=== PATIENT | male | born 1935 | race Caucasian/White ===

== ENCOUNTER 2018-03-09 17:10 | Emergency (ER) | payer OTHER ==
[2018-03-09] MEDS ORDERED: NA CHLORIDE 0.9% 500 ML ONE (18:35)
--- NOTE | 2018-03-09 18:35 | RAD REPORT ---
EXAM DESCRIPTION: CT - Head Brain Wo Cont - 03/09/2018 6:21 pm CLINICAL HISTORY: Syncope, fall, head injury COMPARISON: CT head April 2017 TECHNIQUE: Axial 5 mm thick images of the head were obtained without IV contrast. All CT scans are performed using dose optimization technique as appropriate and may include automated exposure control or mA/KV adjustment according to patient size. FINDINGS: A small 9 mm sized acute intraventricular hemorrhages present in the frontal horn left lat eral ventricle. No intraparenchymal hemorrhages present. No AVM or other abnormality as a source for the acute hemorrhage. No epidural or subdural hematoma. No acute cortical based infarction. No edema or midline shift. No cortical edema or sulcal effacement . Patient has prominent underlying atrophy and chronic ischemic change matching the prior study. Vent ricles are in proportion to volume loss. Dense arterial tree calcifications are present. Mastoid air cells and visualized portions of the paranasal sinuses are clear. No acute bony findings. Findings telephoned to the referring physician 6:31 p.m.. IMPRESSION: Small acute intraventricular hemorrhage frontal horn left lateral ventricle. Hemorrhages likely related to fall history. There is no intraparenchymal hemorrhage, AVM or other obinna rce for the intraventricular hemorrhagic event. Prominent atrophy and chronic ischemic change similar to comparison.
--- NOTE | 2018-03-09 18:44 | ER ---
Nurse's Notes [facility] Name: Jose L March Age: 82 yrs Sex: Male : 1935 Arrival Date: 03/09/2018 Time: 17:11 Bed 2 Private MD: Tanner Christopher R Diagnosis: Intraventricular hemorrhage;Weakness Presentation: 03/09 17:43 Presenting complaint: Patient states: Get a weak spell and unable to stay standing up, hb pt reports he falls down but denies LOC. Care prior to arrival: None. Mechanism of Injury: Fall from standing position. 17:43 Acuity: MIGUEL 3 hb 17:43 Method Of Arrival: Wheelchair hb 18:00 Trauma event details: Injury occurred in the [facility], Injury occurred: at home. Injury occurred: March 09, 2018. 19:11 Transition of care: patient was not received from another setting of care. Onset of ph symptoms was March 09, 2018. Risk Assessment: Do you want to hurt yourself or someone else? Patient reports no desire to harm self or others. Initial Sepsis Screen: Does the patient meet any 2 criteria? No. Patient's initial sepsis screen is negative. Does the patient have a suspected source of infection? No. Patient's initial sepsis screen is negative. Trauma Activation: Not Applicable Physician: ED Physician; Name: ; Notified At: ; Arrived At: Physician: General Surgeon; Name: ; Notified At: ; Arrived At: Physician: Radiology; Name: ; Notified At: ; Arrived At: Physician: Respiratory; Name: ; Notified At: ; Arrived At: Physician: Lab; Name: ; Notified At: ; Arrived At: Historical: - Allergies: 17:45 No Known Allergies; hb - PMHx: 18:53 Hypertension; Hyperlipidemia; ph - Immunization history: Last tetanus immunization: unknown. - Family history:: not pertinent. - Social history:: Smoking status: Patient/guardian denies using tobacco. - Ebola Screening: : No symptoms or risks identified at this time. - Hospitalizations: : No recent hospitalization is reported. Screenin:10 Abuse screen: Denies threats or abuse. Denies injuries from another. Nutritional ph screening: No deficits noted. Tuberculosis screening: No symptoms or risk factors identified. Fall Risk Fall in past 12 months (25 points). No secondary diagnosis (0 pts). IV access (20 points). Ambulatory Aid- None/Bed Rest/Nurse Assist (0 pts). Gait- Weak (10 pts.). Mental Status- Oriented to own ability (0 pts). Total Berkowitz Fall Scale indicates High Risk Score (45 or more points). Fall prevention measures have been instituted. Side Rails Up X 2 Placed Close to Nursing Station Frequent Obs/Assessments Occuring Family Present and informed to notify staff if the need to leave the bedside As available patient and family educated on Fall Prevention Program and Strategies. Primary Survey: 18:00 NO uncontrolled hemorrhage observed. A: The patient is alert. No supplemental oxygen in ph use on arrival. Breathing/Chest: Respiratory pattern: regular, Respiratory effort: spontaneous, unlabored, Breath sounds: clear, bilaterally. Circulation: Skin color: pink, Skin temperature: warm, dry. Disability Alert. Exposure/Environment: All clothing and personal items were removed. Forensic evidence collection is not deemed to be indicated at this time. Items placed in patient belonging bag. There is no evidence of uncontrolled external bleeding. Obvious injury(ies) are noted at this time: bruising noted to allie posterior shoulders and L menjivar. 19:09 Reassessment Breathing/Chest Respiratory pattern Regular Respiratory effort Spontaneous ph Unlabored Circulation Color Lyden Temperature Warm Dry Disability Alert. Assessment: 18:00 General: Appears in no apparent distress. comfortable, well groomed, Behavior is calm, ph cooperative, appropriate for age. Pain: Denies pain. Neuro: Level of Consciousness is awake, alert, obeys commands, Oriented to person, place, situation, Moves all extremities. Full function Gait is unsteady, Speech is normal, Facial symmetry appears normal, Facial symmetry: tongue is midline, Pupils are PERRLA, Denies dizziness, headache. 18:00 Cardiovascular: Reports vomiting, Denies chest pain, lightheadedness, nausea, shortness ph of breath, syncope, Capillary refill < 3 seconds in bilateral fingers Patient's skin is warm and dry. Respiratory: Airway is patent Respiratory effort is even, unlabored, Respiratory pattern is regular, symmetrical. GI: Reports diarrhea, nausea, vomiting, this morning. Derm: Skin is fragile, is thin, Skin is pink, warm \T\ dry. Bruising that is dark purple, on left scapular area and right scapular area. Musculoskeletal: Circulation, motion, and sensation intact. Range of motion: intact in all extremities. 19:00 Reassessment: Patient appears in no apparent distress at this time. Patient and/or aa1 family updated on plan of care and expected duration. Pain level reassessed. Patient is alert, oriented x 3, equal unlabored respirations, skin warm/dry/pink. Pt awaiting transfer to [facility]. 20:00 Reassessment: Patient appears in no apparent distress at this time. Patient and/or aa1 family updated on plan of care and expected duration. Pain level reassessed. Patient is alert, oriented x 3, equal unlabored respirations, skin warm/dry/pink. [facility] present for transfer Patient denies pain at this time. Vital Signs: 18:00 BP 170 / 91; Pulse 68; Resp 18; Temp 98.0; Pulse Ox 96% on R/A; ph 18:46 BP 166 / 84; Pulse 73; Resp 18; Pulse Ox 95% on R/A; ph 19:45 BP 180 / 87; Pulse 75; Resp 18; Temp 98.1; Pulse Ox 100% on R/A; Pain 0/10; aa1 19:45 NEGATIVE TURNER APPRENTICE notified of V/S, no order received aa1 [place] Coma Score: 18:00 Eye Response: spontaneous(4). Verbal Response: confused(4). Motor Response: obeys ph commands(6). Total: 14. 18:46 Eye Response: spontaneous(4). Verbal Response: confused(4). Motor Response: obeys ph commands(6). Total: 14. Trauma Score (Adult): 18:00 Eye Response: spontaneous(1); Verbal Response: confused(1); Motor Response: obeys ph commands(2); Systolic BP: > 89 mm Hg(4); Respiratory Rate: 10 to 29 per min(4); [place] Score: 14; Trauma Score: 12 18:46 Eye Response: spontaneous(1); Verbal Response: confused(1); Motor Response: obeys ph commands(2); Systolic BP: > 89 mm Hg(4); Respiratory Rate: 10 to 29 per min(4); [place] Score: 14; Trauma Score: 12 19:45 Eye Response: spontaneous(1); Verbal Response: confused(1); Motor Response: obeys aa1 commands(2); Systolic BP: > 89 mm Hg(4); Respiratory Rate: 10 to 29 per min(4); [place] Score: 14; Trauma Score: 12 ED Course: 17:11 Patient arrived in ED. as 17:12 Tanner Christopher MD is Private Physician. as 17:38 Maged Burrows MD is Attending Physician. rn 17:38 Ana Paula Peoples RN is Primary Nurse. ph 17:44 Triage completed. hb 18:00 Patient has correct armband on for positive identification. Placed in gown. Bed in low ph position. Call light in reach. Side rails up X2. property assessment monitor on. Pulse ox on. NIBP on. Warm blanket given. 18:00 Patient maintains SpO2 saturation greater than 95% on room air. Thermoregulation: warm ph blanket given to patient. 18:[address] via stretcher. bq 18:21 CT completed. Patient moved back from CT. bq 18:21 CT Head Brain wo Cont In Process Unspecified. EDMS 18:35 Inserted saline lock: 20 gauge in right antecubital area, using aseptic technique. ph Patient transferred, IV remains in place. 18:54 \T\[id number] initiated a transfer with Ramila at the [facility]/ \T\[address] Grijalva the Neurologist micropaleontologist for [facility] with Dr. Burrows for patient transfer consultation.\T\184 administrative approval given by Ramila Lacy RN recycle coordinator. Pt has been accepted by Dr. Saavedra,/ report to be called to [phone]/ pt will be going to the er. 19:10 Arm band placed on. ph 19:10 No provider procedures requiring assistance completed. ph Administered Medications: 18:45 Drug: NS 0.9% 500 ml Route: IV; Rate: bolus; Site: right antecubital; ph 19:13 Follow up: Response: No adverse reaction; IV Status: Completed infusion ph Intake: 18:00 PO: 0ml; Total: 0ml. ph 18:46 IV: 250ml; Total: 250ml. ph Output: 18:00 Urine: 0ml; Total: 0ml. ph 18:46 Urine: 0ml; Total: 0ml. ph Outcome: 18:44 ER care complete, transfer ordered by . rn 20:09 Transferred by ground EMS to [facility], Transfer form completed. aa1 20:09 Condition: stable 20:09 Discharge instructions given to patient, family, Instructed on the need for transfer, Demonstrated understanding of instructions. 20:10 Patient left the ED. aa1 Signatures: Dispatcher [employer] EDSobia Garcia RN RN aa1 Georgia Mar Amelia as Nieto, Roman, MD MD rn Hall, Patricia, RN RN Komal Barrett RN RN Sarah Carmen Corrections: (The following items were deleted from the chart) 18:49 18:46 Pulse 73bpm; Resp 18bpm; Pulse Ox 95% RA; ph ph 19:08 18:00 Neuro: Level of Consciousness is awake, alert, obeys commands, Oriented to ph person, place, situation, Speech is normal, Facial symmetry appears normal, Facial symmetry: tongue is midline, ph
--- NOTE | 2018-03-09 18:44 | EDPHYS ---
Physician Documentation [facility] Name: Jose L March Age: 82 yrs Sex: Male : 1935 Arrival Date: 03/09/2018 Time: 17:11 Bed 2 Private MD: Tanner Christopher R ED Physician Maged Burrows HPI: 03/09 18:29 This 82 yrs old Male presents to ER via Wheelchair with complaints of Fall rn Injury. 18:29 Details of fall: The patient fell from an upright position. Onset: The symptoms/episode rn began/occurred today. Associated injuries: The patient sustained injury to the head. Severity of symptoms: At their worst the symptoms were. 18:32 The patient has not experienced similar symptoms in the past. The patient has not rn recently seen a physician. Son reports recent falls, did hit head, unkonwn if LOC, + nausea and vomiting today with generalized weakness. Not on blood thinners. . Historical: - Allergies: 17:45 No Known Allergies; hb - PMHx: 18:53 Hypertension; Hyperlipidemia; ph - Immunization history: Last tetanus immunization: unknown. - Family history:: not pertinent. - Social history:: Smoking status: Patient/guardian denies using tobacco. - Ebola Screening: : No symptoms or risks identified at this time. - Hospitalizations: : No recent hospitalization is reported. ROS: 18:32 Constitutional: Negative for fever, chills, and weight loss, Eyes: Negative for injury, rn pain, redness, and discharge, Neck: Negative for injury, pain, and swelling, Cardiovascular: Negative for chest pain, palpitations, and edema, Respiratory: Negative for shortness of breath, cough, wheezing, and pleuritic chest pain, Abdomen/GI: + nausea/vomiting MS/Extremity: Negative for injury and deformity, Skin: Negative for injury, rash, and discoloration, Neuro: Negative for numbness, tingling, and seizure. Exam: 18:32 Constitutional: Thin male, no acute distress Head/Face: Normocephalic,+ small rn hematoma posterior scalp, no laceration Eyes: Pupils equal round and reactive to light, extra-ocular motions intact. Chest/axilla: Contusion posterior upper thorax. No crepitus Cardiovascular: Regular rate and rhythm with a normal S1 and S2. No gallops, murmurs, or rubs. Normal PMI, no JVD. No pulse deficits. Respiratory: Lungs have equal breath sounds bilaterally, clear to auscultation and percussion. No rales, rhonchi or wheezes noted. No increased work of breathing, no retractions or nasal flaring. Abdomen/GI: Soft, non-tender, with normal bowel sounds. No distension or tympany. No guarding or rebound. No evidence of tenderness throughout. MS/ Extremity: Pulses equal, no cyanosis. Neurovascular intact. Full, normal range of motion. Equal circumference. Neuro: Awake and alert, GCS 15, oriented to person, place, time, and situation. Slow to walk, shuffled gait, slow speech but understandable. Moves all 4 ext. Vital Signs: 18:00 BP 170 / 91; Pulse 68; Resp 18; Temp 98.0; Pulse Ox 96% on R/A; ph 18:46 BP 166 / 84; Pulse 73; Resp 18; Pulse Ox 95% on R/A; ph 19:45 BP 180 / 87; Pulse 75; Resp 18; Temp 98.1; Pulse Ox 100% on R/A; Pain 0/10; aa1 19:45 CLASS C DRIVER notified of V/S, no order received aa1 [place] Coma Score: 18:00 Eye Response: spontaneous(4). Verbal Response: confused(4). Motor Response: obeys ph commands(6). Total: 14. 18:46 Eye Response: spontaneous(4). Verbal Response: confused(4). Motor Response: obeys ph commands(6). Total: 14. Trauma Score (Adult): 18:00 Eye Response: spontaneous(1); Verbal Response: confused(1); Motor Response: obeys ph commands(2); Systolic BP: > 89 mm Hg(4); Respiratory Rate: 10 to 29 per min(4); [place] Score: 14; Trauma Score: 12 18:46 Eye Response: spontaneous(1); Verbal Response: confused(1); Motor Response: obeys ph commands(2); Systolic BP: > 89 mm Hg(4); Respiratory Rate: 10 to 29 per min(4); [place] Score: 14; Trauma Score: 12 19:45 Eye Response: spontaneous(1); Verbal Response: confused(1); Motor Response: obeys aa1 commands(2); Systolic BP: > 89 mm Hg(4); Respiratory Rate: 10 to 29 per min(4); [place] Score: 14; Trauma Score: 12 MDM: 17:38 Patient medically screened. rn 18:42 Differential diagnosis: closed head injury, contusion. Data reviewed: vital signs, rn nurses notes, old medical records, lab test result(s), radiologic studies, and as a result, I will admit patient. Counseling: I had a detailed discussion with the patient and/or guardian regarding: the historical points, exam findings, and any diagnostic results supporting the discharge/admit diagnosis, radiology results, the need to transfer to another facility, for higher level of care, [facility] does not immediately have the required specialist. ED course: Pt with intraventricular hemorrhage, likely traumatic, but falls unwitnessed, + change in mental status, accepted for transfer to [facility] by Dr. Grijalva, neurosurgery.. 03/09 17:48 Order name: Basic Metabolic Panel; Complete Time: 19:34 rn 03/09 17:48 Order name: CBC with Diff; Complete Time: : rn 03/09 17:48 Order name: Protime (+inr); Complete Time: :34 03/09 17:48 Order name: Ptt, Activated; Complete Time: :34 rn 03/09 17:48 Order name: Troponin (emerg Dept Use Only); Complete Time: :34 rn 03/09 17:48 Order name: PROBNP; Complete Time: 19:34 rn 03/09 17:48 Order name: CT Head Brain wo Cont; Complete Time: 18:38 03/09 17:48 Order name: EKG; Complete Time: 17:50 03/09 17:48 Order name: Procalcitonin rn 03/09 17:48 Order name: Creatinine for Radiology; Complete Time: 19:34 rn 03/09 17:48 Order name: Hepatic Function; Complete Time: :34 rn 03/09 17:48 Order name: Lipase; Complete Time: :03/09 17:48 Order name: Cardiac monitoring; Complete Time: 18:01 03/09 17:48 Order name: EKG - Nurse/Tech; Complete Time: 19:16 03/09 17:48 Order name: IV Saline Lock; Complete Time: 18:46 rn 03/09 17:48 Order name: Labs collected and sent; Complete Time: 18:46 rn 03/09 17:48 Order name: NPO; Complete Time: 18:01 rn 03/09 17:48 Order name: O2 Per Protocol; Complete Time: 18:01 rn 03/09 17:48 Order name: O2 Sat Monitoring; Complete Time: 18:01 rn Administered Medications: 18:45 Drug: NS 0.9% 500 ml Route: IV; Rate: bolus; Site: right antecubital; ph 19:13 Follow up: Response: No adverse reaction; IV Status: Completed infusion ph Disposition: 03/09/18 18:44 Transfer ordered to [facility]. Diagnosis are Intraventricular hemorrhage, Weakness. - Reason for transfer: Higher level of care. - Accepting physician is Dr. Grijalva. - Condition is Stable. - Problem is new. - Symptoms have improved. Signatures: Dispatcher [employer] EDKS Sobia Farrell RN RN aa1 Karen Miller, SENIOR QUALITY CONTROL INSPECTOR-C SENIOR QUALITY CONTROL INSPECTOR-Csnw Maged Burrows MD MD rn Hall, Patricia, RN RN Komal Barrett RN RN Corrections: (The following items were deleted from the chart) 18:57 18:13 Abdomen Pelvis W Con+CT.RAD.BRZ ordered. [facility] 20:10 18:44 03/09/2018 18:44 Transfer ordered to [facility]. aa1 Diagnosis is Intraventricular hemorrhage; Weakness. Reason for transfer: Higher level of care. Accepting physician is Dr. Grijalva. Condition is Stable. Problem is new. Symptoms have improved. rn
[2018-03-09 19:10] LABS: Absolute Lymphocytes (CBC) 1.3 K/uL (0.7-4.9); Absolute Monocytes 1.7 K/uL (0.1-1.3); Absolute Neutrophil 14.6 K/uL (1.8-8.0); Basophils % 0.2 % (0-1.3); Eosinophils % 0.1 % (0-4.4); Hematocrit 38.9 % (39.6-49.0); Lymphocytes % 7.4 % (15.3-44.8); MPV 9.9 fL (7.6-11.3); Monocytes % 9.8 % (3.3-12.3); RBC Red Blood Cell Count 4.21 M/uL (4.33-5.43)
[2018-03-09 19:13] LABS: Protime INR 1.19
[2018-03-09 19:24] LABS: Albumin 3.7 g/dL (3.4-5.0); Bilirubin Direct 0.3 mg/dL (0-0.2); Bilirubin Total 1.5 mg/dL (0.2-1.0); Potassium 3.7 mmol/L (3.5-5.1); Troponin (Emerg Dept Use Only) 0.14 ng/mL (0.0-0.045)
--- NOTE | 2018-03-10 07:05 | EKG ---
Test Date: 2018-03-09 Test Time: 19:06:12 Wet End Supervisor: ROXANA MEASUREMENT RESULTS: Intervals: Rate: 74 MA: 156 QRSD: 100 QT: 396 QTc: 439 [place]: P: MA: 156 QRS: -15 T: 79 INTERPRETIVE STATEMENTS: Normal sinus rhythm ST & T wave abnormality, consider lateral ischemia Abnormal ECG Compared to ECG 08/17/2015 16:01:49 ST (T wave) deviation now present Possible ischemia now present Electronically Signed On 03-10-18 07:04:37 MOBILE SALES EXPERT by John Schultz
== END 2018-03-09 20:10 | disposition short-term general hospital (02) ==
LOC: ER 17:10
DX: S06.350A Traumatic hemorrhage of left cerebrum without loss of consciousness, initial encounter (principal); W19.XXXA Unspecified fall, initial encounter; Y93.9 Activity, unspecified; Y92.9 Unspecified place or not applicable; I10 Essential (primary) hypertension
CPT/HCPCS: 36415; 70450; 80048; 80076; 83690; 83880; 84145; 84484; 85025; 85610; 85730; 93005; 99285